=== PATIENT | female | born 1985 | race Caucasian/White ===

== ENCOUNTER 2019-09-22 17:56 | Emergency (ER) | payer BC, OTHER ==
[2019-09-22] MEDS ORDERED: IPRATROPIUM BROM 0.5MG/2.5ML ONE (18:26)
[2019-09-22] MEDS ORDERED: ACETAMINOPHEN 500 MG TAB ONE (18:26)
[2019-09-22] MEDS ORDERED: ALBUTEROL 2.5 MG/3 ML NEB SOL ONE (18:26)
--- NOTE | 2019-09-22 19:27 | RAD REPORT ---
EXAM DESCRIPTION: RAD - Chest Pa And Lat (2 Views) - 09/22/2019 7:21 pm CLINICAL HISTORY: Cough;Congestion Chest pain. COMPARISON: CHEST SINGLE VIEW dated 07/21/2015 FINDINGS: Small opacity is present in the left lung base laterally suspicious for mild developing pn eumonia. The heart is upper limit of normal in size. No displaced fractures.
--- NOTE | 2019-09-22 19:33 | ER ---
Nurse's Notes [facility] Name: Jayla pU Age: 34 yrs Sex: Female : 1985 Arrival Date: 09/22/2019 Time: 18:00 Bed 6 Private MD: Diagnosis: Influenza due to identified novel influenza A virus;Pneumonia, unspecified organism Presentation: 09/22 18:17 Presenting complaint: Patient states: fever, cough, chest pain, back pain, shoulder iw pain SOB stated yesterday, low energy, fever 101 today last ibuprofen given 2 hours ago. Transition of care: patient was not received from another setting of care. Onset of symptoms was September 21, 2019. Risk Assessment: Do you want to hurt yourself or someone else? Patient reports no desire to harm self or others. Initial Sepsis Screen: Does the patient meet any 2 criteria? No. Patient's initial sepsis screen is negative. Does the patient have a suspected source of infection? No. Patient's initial sepsis screen is negative. Care prior to arrival: Medication(s) given: Motrin. 18:17 Method Of Arrival: Wheelchair iw 18:17 Acuity: ESEQUIEL 4 iw Triage Assessment: 19:42 General: Appears in no apparent distress. ill, Behavior is calm, cooperative. rv Respiratory: Onset: The symptoms/episode began/occurred gradually, the patient has mild shortness of breath. Respiratory: Airway is patent. Historical: - Allergies: 18:20 No Known Allergies; iw - Home Meds: 18:20 None [Active]; iw - PMHx: 18:20 None; iw - PSHx: 18:20 None; iw - Immunization history:: Adult Immunizations not up to date. - Social history:: Smoking status: Patient/guardian denies using tobacco. - Ebola Screening: : Patient negative for fever greater than or equal to 101.5 degrees Fahrenheit, and additional compatible Ebola Virus Disease symptoms Patient denies exposure to infectious person Patient denies travel to an Ebola-affected area in the 21 days before illness onset No symptoms or risks identified at this time. Screenin:38 Abuse screen: Denies threats or abuse. Nutritional screening: No deficits noted. tr5 Tuberculosis screening: No symptoms or risk factors identified. Fall Risk None identified. Assessment: 18:38 General: Appears uncomfortable, Behavior is cooperative. Pain: Complains of pain in tr5 "Everywhere". Neuro: Level of Consciousness is awake, alert, obeys commands, Oriented to person, place, time, [employer] are equal bilaterally Moves all extremities. Cardiovascular: Heart tones present Capillary refill < 3 seconds Pulses are all present. Edema is absent. Rhythm is regular. Respiratory: Airway is patent Respiratory effort is even, unlabored, Respiratory pattern is regular, symmetrical, Breath sounds are clear bilaterally. Respiratory: Reports shortness of breath cough that is productive. GI: No signs and/or symptoms were reported involving the gastrointestinal system. : No signs and/or symptoms were reported regarding the genitourinary system. EENT: No signs and/or symptoms were reported regarding the EENT system. Derm: No signs and/or symptoms reported regarding the dermatologic system. Musculoskeletal: No signs and/or symptoms reported regarding the musculoskeletal system. Vital Signs: 18:20 BP 139 / 71; Pulse 100; Resp 18 S; Temp 101.3(TE); Pulse Ox 98% on R/A; Weight 70.31 iw kg; Height 6 ft. 0 in. (182.88 cm); 19:44 BP 139 / 84; Pulse 96; Resp 17; Temp 99.4(O); Pulse Ox 98% on R/A; rv 18:20 Body Mass Index 21.02 (70.31 kg, 182.88 cm) iw ED Course: 18:00 Patient arrived in ED. mr 18:06 [facility] Wood [facility] kb 18:06 Jesus Munroe MD is Attending Physician. kb 18:15 Milton Mcdonough RN is Primary Nurse. tr5 18:20 Triage completed. iw 18:21 Arm band placed on. iw 18:38 Bed in low position. Call light in reach. Side rails up X 1. tr5 18:38 RSV Sent. tr5 18:38 Strep Sent. tr5 18:38 Flu Sent. tr5 18:38 Flu and/or RSV swab sent to lab. Strep swab sent to lab. tr5 19:21 Chest Pa And Lat (2 Views) XRAY In Process Unspecified. EDMS 19:43 No provider procedures requiring assistance completed. Patient did not have IV access rv during this emergency room visit. Administered Medications: 18:37 Drug: Albuterol 2.5 mg Route: Inhalation; tr5 19:41 Follow up: Response: No adverse reaction rv 18:37 Drug: AtroVENT Aerosol 0.5 mg Route: Inhalation; tr5 19:42 Follow up: Response: No adverse reaction rv 18:37 Drug: Tylenol 1000 mg Route: PO; tr5 19:41 Follow up: Response: No adverse reaction rv 19:41 Drug: Tamiflu 75 mg Route: PO; rv 19:42 Follow up: Response: No adverse reaction rv 19:41 Drug: Zithromax 500 mg Route: PO; rv 19:42 Follow up: Response: Medication administered at discharge. rv Outcome: 19:33 Discharge ordered by MD. kb 19:43 Discharged to home ambulatory, with family. rv 19:43 Condition: good 19:43 Discharge instructions given to patient, family, Instructed on discharge instructions, follow up and referral plans. medication usage, Demonstrated understanding of instructions, follow-up care, medications, Prescriptions given X 3. 19:44 Patient left the ED. rv Signatures: Dispatcher [employer] EDMS Mitzi Wood, ENERGY ENGINEER-Ambrosio ANDERSONP-Veda Christopher Irene, RN Bruce Simon RN RN rv Rodriguez, Tommie, RN RN tr5
--- NOTE | 2019-09-22 19:33 | EDPHYS ---
Physician Documentation [facility] Name: Jayla Up Age: 34 yrs Sex: Female : 1985 Arrival Date: 09/22/2019 Time: 18:00 Bed 6 Private MD: ED Physician Jesus Munroe HPI: 09/22 21:27 This 34 yrs old Female presents to ER via Wheelchair with complaints of kb Breathing Difficulty, Fever. 21:27 The patient or guardian reports cough, that is intermittent, described as moderate, kb with no sputum, difficulty breathing, flu symptoms, arthralgias, low-grade fever, myalgias. Onset: The symptoms/episode began/occurred yesterday. Severity of symptoms: At their worst the symptoms were moderate, in the emergency department the symptoms are unchanged. Modifying factors: The symptoms are alleviated by nothing, the symptoms are aggravated by nothing. Associated signs and symptoms: Pertinent positives: fever. The patient has not experienced similar symptoms in the past. The patient has not recently seen a physician. Historical: - Allergies: 18:20 No Known Allergies; iw - Home Meds: 18:20 None [Active]; iw - PMHx: 18:20 None; iw - PSHx: 18:20 None; iw - Immunization history:: Adult Immunizations not up to date. - Social history:: Smoking status: Patient/guardian denies using tobacco. - Ebola Screening: : Patient negative for fever greater than or equal to 101.5 degrees Fahrenheit, and additional compatible Ebola Virus Disease symptoms Patient denies exposure to infectious person Patient denies travel to an Ebola-affected area in the 21 days before illness onset No symptoms or risks identified at this time. ROS: 21:27 ENT: Negative for injury, pain, and discharge, Neck: Negative for injury, pain, and kb swelling, Cardiovascular: Negative for chest pain, palpitations, and edema, Abdomen/GI: Negative for abdominal pain, nausea, vomiting, diarrhea, and constipation, Back: Negative for injury and pain, : Negative for injury, bleeding, discharge, and swelling, MS/Extremity: Negative for injury and deformity, Skin: Negative for injury, rash, and discoloration, Neuro: Negative for headache, weakness, numbness, tingling, and seizure. 21:27 Constitutional: Positive for body aches, chills, fatigue, fever, malaise. 21:27 Respiratory: Positive for cough, shortness of breath. Exam: 21:27 Head/Face: Normocephalic, atraumatic. ENT: Nares patent. No nasal discharge, no kb septal abnormalities noted. Tympanic membranes are normal and external auditory canals are clear. Oropharynx with no redness, swelling, or masses, exudates, or evidence of obstruction, uvula midline. Mucous membranes moist. Neck: Trachea midline, no thyromegaly or masses palpated, and no cervical lymphadenopathy. Supple, full range of motion without nuchal rigidity, or vertebral point tenderness. No Meningismus. Chest/axilla: Normal chest wall appearance and motion. Nontender with no deformity. No lesions are appreciated. Cardiovascular: Regular rate and rhythm with a normal S1 and S2. No gallops, murmurs, or rubs. Normal PMI, no JVD. No pulse deficits. Respiratory: Lungs have equal breath sounds bilaterally, clear to auscultation and percussion. No rales, rhonchi or wheezes noted. No increased work of breathing, no retractions or nasal flaring. Abdomen/GI: Soft, non-tender, with normal bowel sounds. No distension or tympany. No guarding or rebound. No evidence of tenderness throughout. Skin: Warm, dry with normal turgor. Normal color with no rashes, no lesions, and no evidence of cellulitis. MS/ Extremity: Pulses equal, no cyanosis. Neurovascular intact. Full, normal range of motion. Neuro: Awake and alert, GCS 15, oriented to person, place, time, and situation. Cranial nerves II-XII grossly intact. Motor strength 5/5 in all extremities. Sensory grossly intact. Cerebellar exam normal. Normal gait. 21:27 Constitutional: The patient appears alert, awake, uncomfortable. Vital Signs: 18:20 BP 139 / 71; Pulse 100; Resp 18 S; Temp 101.3(TE); Pulse Ox 98% on R/A; Weight 70.31 iw kg; Height 6 ft. 0 in. (182.88 cm); 19:44 BP 139 / 84; Pulse 96; Resp 17; Temp 99.4(O); Pulse Ox 98% on R/A; rv 18:20 Body Mass Index 21.02 (70.31 kg, 182.88 cm) iw MDM: 18:06 Patient medically screened. kb 21:26 Data reviewed: vital signs, nurses notes. Data interpreted: Pulse oximetry: on room air kb is 98 %. Interpretation: normal. Counseling: I had a detailed discussion with the patient and/or guardian regarding: the historical points, exam findings, and any diagnostic results supporting the discharge/admit diagnosis, lab results, radiology results, the need for outpatient follow up, a family practitioner, to return to the emergency department if symptoms worsen or persist or if there are any questions or concerns that arise at home. 09/22 18:15 Order name: Flu; Complete Time: 19:08 kb 09/22 18:15 Order name: Strep; Complete Time: 19:08 kb 09/22 18:15 Order name: RSV; Complete Time: 19:08 kb 09/22 18:15 Order name: Chest Pa And Lat (2 Views) XRAY; Complete Time: 19:29 kb 09/22 19:01 Order name: Throat Culture EDMS Administered Medications: 18:37 Drug: Albuterol 2.5 mg Route: Inhalation; tr5 19:41 Follow up: Response: No adverse reaction rv 18:37 Drug: AtroVENT Aerosol 0.5 mg Route: Inhalation; tr5 19:42 Follow up: Response: No adverse reaction rv 18:37 Drug: Tylenol 1000 mg Route: PO; tr5 19:41 Follow up: Response: No adverse reaction rv 19:41 Drug: Tamiflu 75 mg Route: PO; rv 19:42 Follow up: Response: No adverse reaction rv 19:41 Drug: Zithromax 500 mg Route: PO; rv 19:42 Follow up: Response: Medication administered at discharge. rv Disposition: 09/23 07:12 Co-signature as Attending Physician, Jesus Munroe MD I agree with the assessment and kdr plan of care. Disposition: 09/22/19 19:33 Discharged to Home. Impression: Influenza due to identified novel influenza A virus, Pneumonia, unspecified organism. - Condition is Stable. - Discharge Instructions: Community-Acquired Pneumonia, Adult, Jpac-[id number]-Gewm, Influenza, Adult, [id number]. - Prescriptions for Tamiflu 75 mg Oral Capsule - take 1 capsule by ORAL route every 12 hours for 5 days; 10 capsule. Albuterol Sulfate 90 mcg/actuation - inhale 1-2 puff by INHALATION route every 4-6 hours; 1 Inhaler. Zithromax 500 mg Oral Tablet - take 1 tablet by ORAL route once daily for 5 days; 5 tablet. - Medication Reconciliation Form, Thank You Letter, Antibiotic Education, Prescription Opioid Use form. - Follow up: Emergency Department; When: As needed; Reason: Worsening of condition. Follow up: Private Physician; When: 2 - 3 days; Reason: Recheck today's complaints, Continuance of care, Re-evaluation by your physician. Signatures: Dispatcher [employer] EDMS Mitzi Wood, FENCE LABORER-C FENCE LABORER-Ckb Jesus Munroe MD MD kdr Fernanda Ramírez RN RN iw Bruce Boyd RN RN Milton Hanks RN RN tr5 Corrections: (The following items were deleted from the chart) 09/22 19:44 19:33 09/22/2019 19:33 Discharged to Home. Impression: Influenza due to identified rv novel influenza A virus; Pneumonia, unspecified organism. Condition is Stable. Forms are Medication Reconciliation Form, Thank You Letter, Antibiotic Education, Prescription Opioid Use. Follow up: Emergency Department; When: As needed; Reason: Worsening of condition. Follow up: Private Physician; When: 2 - 3 days; Reason: Recheck today's complaints, Continuance of care, Re-evaluation by your physician. kb
[2019-09-22] MEDS ORDERED: OSELTAMIVIR 75 MG CAP ONE (19:35)
[2019-09-22] MEDS ORDERED: AZITHROMYCIN 250 MG TAB ONE (19:40)
[2019-09-22 19:50] VITALS: O2SAT 98
[2019-09-22 19:51] VITALS: BP 139/84; TEMP 99.4
== END 2019-09-22 19:44 | disposition home or self-care (01) ==
LOC: ER 17:56
DX: J10.00 Influenza due to other identified influenza virus with unspecified type of pneumonia (principal)
CPT/HCPCS: 71046; 87070; 87081; 87804; 87807; 99284